=== PATIENT | female | born 1990 | race Caucasian/White ===

== ENCOUNTER 2017-08-14 11:44 | Emergency (ER) ==
[2017-08-14 11:48] VITALS: BP 137/83; TEMP 97.6; BMI 27.4
--- NOTE | 2017-08-14 11:58 | ED.PDOC ---
General ED Provider: Dr. AMARIS AARON-ER Chief Complaint: Knee Pain/Injury Stated Complaint: i have a torn meniscus--but i fell and hurt my knee 2 weeks ago Time Seen by Physician: 11:50 Mode of Arrival: Walk-In Information Source: Patient Exam Limitations: No limitations Nursing and Triage Documentation Reviewed and Agree: Yes Musculoskeletal Complaint Exam - Knee Pain Complaint/Exam Mechanism of Injury: Reports: Trauma Onset/Duration: 2 weeks Symptoms Are: Still present Onset of Pain: Reports: Immediate Initial Severity: Mild Current Severity: Mild Location: Reports: Discrete (right knee) Character: Reports: Dull, Aching Aggravating: Reports: Movement, Weight bearing, Prolonged standing Associated Signs and Symptoms: Reports: Swelling. Denies: Redness, Bruising, Fever, Weakness, Numbness, Tingling Able to Bear Weight: Yes Related History: Reports: Similar episode Septic Arthritis Risk Factors: Reports: None Gout Risk Factors: Reports: None Knee Findings: Present: Swelling, Tenderness, Limited range of motion Luis Test Positive: No Kaveh Test Positive: No Limited Range of Motion: Present: Active, Passive Differential Diagnoses: Closed Fracture, Internal Derangement, Sprain, Strain Review of Systems - Review Of Systems Constitutional: Reports: No symptoms Eyes: Reports: No symptoms Ears, Nose, Mouth, Throat: Reports: No symptoms Respiratory: Reports: No symptoms Cardiac: Reports: No symptoms GI: Reports: No symptoms : Reports: No symptoms Musculoskeletal: Reports: Joint pain Skin: Reports: No symptoms Neurological: Reports: No symptoms Endocrine: Reports: No symptoms Hematologic/Lymphatic: Reports: No symptoms All Other Systems: Reviewed and Negative Past Medical History - Past Medical History Previously Healthy: Yes Endocrine: Reports: Unknown Cardiovascular: Reports: Unknown Respiratory: Reports: Unknown Hematological: Reports: Unknown Gastrointestinal: Reports: Unknown Genitourinary: Reports: Unknown Neuro/Psych: Reports: Unknown Musculoskeletal: Reports: Joint Pain Cancer: Reports: Unknown Last Menstrual Period: none - Surgical History General Surgical History: Reports: Unknown - Family History Family History: Reports: Unknown - Social History Smoking Status: Current every day smoker, Light tobacco smoker Hx Substance Use: No Alcohol Screening: None Physical Exam - Physical Exam Appearance: Well-appearing, No pain distress, Well-nourished Pain Distress: Mild Eyes: FLORA, EOMI, Conjunctiva clear ENT: Ears normal, Nose normal, Oropharynx normal Neck: Supple Respiratory: Airway patent, Breath sounds clear, Breath sounds equal, Respirations nonlabored Cardiovascular: RRR, Pulses normal, No rub, No murmur GI/: Soft, Nontender, No masses, Bowel sounds normal, No Organomegaly Musculoskeletal: Normal strength, ROM intact, No edema, No calf tenderness Skin: Warm, Dry, Normal color Neurological: Alert, Oriented Psychiatric: Affect appropriate, Mood appropriate, Anxious Interpretation - Radiology Interpretation Radiology Interpretation By: ED Physician Radiology Results: Negative Critical Care Note - Critical Care Note Total Time (mins): 0 Course - Course Orders, Labs, Meds: Orders Category Date Time Status CRUTCHES [ED CRUTCHES] .ONCE EMERGENCY 08/14/17 12:07 Active ED SPLINT APPLICATION .ONCE EMERGENCY 08/14/17 12:07 Active KNEE, RIGHT 4 VIEWS Stat RADS 08/14/17 11:50 Ordered Vital Signs: Temp Pulse Resp BP Pulse Ox 08/14/17 11:45 97.6 F 98 H 16 137/83 99 Departure - Departure Time of Disposition: 12:07 Disposition: HOME SELF-CARE Discharge Problem: Knee pain Instructions: Knee Pain (ED) Condition: Good Pt referred to PMD for follow-up: Yes Additional Instructions: cataflam 50mg tid #30--tramadol 50mg q 8hrs prn pain #20--f/u clinic--consider mri /ortho referral Allergies/Adverse Reactions: Allergies No Known Allergies Allergy (Verified 08/14/17 11:49) Home Medications: Ambulatory Orders 1 [No Reported Medications] 08/14/17 Disposition Discussed With: Patient, Family
--- NOTE | 2017-08-14 13:51 | DI ---
EXAM: Four views of the right knee. History: Right knee trauma. Findings: No acute fracture or dislocation. No abnormal calcifications or radiopaque foreign bodies . Joint spaces are preserved. Impression: No acute osseous abnormality
== END 2017-08-14 12:44 | disposition home or self-care (01) ==
LOC: ED 11:44
DX: M25.561 Pain in right knee (principal); W19.XXXA Unspecified fall, initial encounter; F17.210 Nicotine dependence, cigarettes, uncomplicated
CPT/HCPCS: 99282

== ENCOUNTER 2017-09-08 13:04 | Emergency (ER) ==
[2017-09-08 13:09] VITALS: BP 108/74; TEMP 97.2
--- NOTE | 2017-09-08 14:06 | CT ---
Exam: CT of the right ankle without contrast History: Ankle pain with weightbearing Technique: [address] of the right ankle with multiplanar reformations FINDINGS: The articular surfaces of the tibiotalar joint and subtalar joints appear normal. No bony or articular abnormalities are seen. No surrounding soft tissue abnormalities are seen. No bony an omalies are seen. Impression: 1. Normal CT right ankle
--- NOTE | 2017-09-08 14:08 | CT ---
Exam: CT of the right foot without contrast History: Foot pain with weightbearing Technique: [address] of the right foot with multiplanar reformations FINDINGS: A specific area of concern has not been designated. No significant peripheral soft tissue abnormalities are seen. No radiopaque foreign body is seen. No fracture lines or suspicious bony l esions. No degenerative change or bony anomalies. Impression: 1. Normal CT right foot.
--- NOTE | 2017-09-08 14:14 | ED.PDOC ---
General ED Provider: Dr. AMARIS AARON-ER Chief Complaint: Foot Pain/Injury Stated Complaint: my right foot and ankle are hurting--i didnt injure them Time Seen by Physician: 14:12 Mode of Arrival: Walk-In Information Source: Patient Exam Limitations: No limitations Nursing and Triage Documentation Reviewed and Agree: Yes Musculoskeletal Complaint Exam - Ankle/Foot Complaint/Exam Location of Injury: Reports: Right, Ankle, Foot Mechanism of Injury: Reports: No known trauma Onset/Duration: 24 hrs Symptoms Are: Reports: Still present Onset of Pain: Reports: Immediate Initial Severity: Mild Current Severity: Mild Location: Reports: Discrete Character: Reports: Burning Alleviating: Reports: None Aggravating: Reports: Movement, Weight bearing Able to Bear Weight: No Associated Signs and Symptoms: Reports: Numbness, Tingling. Denies: Swelling, Redness, Bruising, Fever, Weakness Related History: Reports: Similar episode Gout Risk Factors: Reports: None Related Surgical History: Reports: None Lower Extremity Findings: Present: Tenderness, Limited range of motion Achilles Tendon Abnormality: No Tenderness: Present: Midfoot, Metatarsals Differential Diagnosis: Contusion, Other Review of Systems - Review Of Systems Constitutional: Reports: No symptoms Eyes: Reports: No symptoms Ears, Nose, Mouth, Throat: Reports: No symptoms Respiratory: Reports: No symptoms Cardiac: Reports: No symptoms GI: Reports: No symptoms : Reports: No symptoms, Urgency Musculoskeletal: Reports: Joint pain, Muscle stiffness Skin: Reports: No symptoms Neurological: Reports: No symptoms Endocrine: Reports: No symptoms Hematologic/Lymphatic: Reports: No symptoms All Other Systems: Reviewed and Negative Past Medical History - Past Medical History Previously Healthy: Yes Endocrine: Reports: Unknown Cardiovascular: Reports: Unknown Respiratory: Reports: Unknown Hematological: Reports: Unknown Gastrointestinal: Reports: Unknown Genitourinary: Reports: Unknown Neuro/Psych: Reports: Unknown Musculoskeletal: Reports: Joint Pain Cancer: Reports: Unknown Last Menstrual Period: 09/08/2016 - Surgical History General Surgical History: Reports: Unknown - Family History Family History: Reports: Unknown - Social History Smoking Status: Current every day smoker Hx Substance Use: No Alcohol Screening: None Lives: With family - Immunizations Tetanus Shot up to Date: Yes Physical Exam - Physical Exam Appearance: Well-appearing, No pain distress, Well-nourished Pain Distress: Mild Eyes: FLORA, EOMI, Conjunctiva clear ENT: Ears normal, Nose normal, Oropharynx normal Neck: Supple Respiratory: Airway patent Cardiovascular: RRR, Pulses normal, No rub, No murmur GI/: Soft, Nontender, No masses, Bowel sounds normal, No Organomegaly Musculoskeletal: Limited ROM Skin: Warm Neurological: Sensation intact, Motor intact, Reflexes intact, Cranial nerves intact, Alert, Oriented Psychiatric: Affect appropriate, Mood appropriate Interpretation - Radiology Interpretation Radiology Interpretation By: Radiologist Radiology Results: Negative Exam Interpreted: CT Scan Critical Care Note - Critical Care Note Total Time (mins): 0 Course - Course Orders, Labs, Meds: Orders Category Date Time Status CT ANKLE RIGHT WO CONTRAST Stat RADS 09/08/17 13:[address] FOOT RIGHT WITHOUT CONTRAST Stat RADS 09/08/17 13:16 Completed Vital Signs: Temp Pulse Resp BP Pulse Ox 09/08/17 13:04 97.2 F L 105 H 20 108/74 95 Departure - Departure Time of Disposition: 14:14 Disposition: HOME SELF-CARE Discharge Problem: Foot pain, right Instructions: Foot Contusion (ED) Condition: Good Pt referred to PMD for follow-up: Yes Additional Instructions: use crutches--tramadol 50mg q 6hrs prn pain #10---f/u with pcp Allergies/Adverse Reactions: Allergies No Known Allergies Allergy (Verified 09/08/17 13:10) Home Medications: Ambulatory Orders 1 [No Reported Medications] 08/14/17 Disposition Discussed With: Patient
== END 2017-09-08 14:22 | disposition home or self-care (01) ==
LOC: ED 13:04
DX: M25.571 Pain in right ankle and joints of right foot (principal); R20.0 Anesthesia of skin; F17.210 Nicotine dependence, cigarettes, uncomplicated
CPT/HCPCS: 99282